=== PATIENT | female | born 1975 | race Caucasian/White ===

== ENCOUNTER 2019-06-24 06:13 | Day surgery (SDC) | payer BC, MEDICAID ==
[~2019-06-24 06:13] MED LIST: Buffered Lidocaine 1% SYRIN* 1 ML/SYRINGE INTRADERM ONE; Lactated Ringers 1000 ML Bag* 1,000 ML IV SCH
[2019-06-24] MEDS ORDERED: Buffered Lidocaine 1% SYRIN* 1 ML/SYRINGE INTRADERM ONE (06:37)
[2019-06-24 07:29] LABS: ABS Basophils 0.1 10^3/ul (0-0.2); ABS Eosinophils 0.2 10^3/ul (0-0.6); ABS Lymphocytes 2.2 10^3/ul (1.0-4.8); ABS Monocytes 0.5 10^3/ul (0-0.8); ABS Neutrophils 3.2 10^3/ul (1.5-7.7); Eosinophil % 2.8 %; Hematocrit 27 % (35-47); Hemoglobin 8.8 g/dL (12.0-16.0); Lymphocyte % 36.2 %; Mean Corpuscular HGB Conc 32 g/dL (31-36); Mean Corpuscular Hemoglobin 25 pg (27-31); Mean Corpuscular Volume 77 fL (80-97); Mean Platelet Volume 8.9 fL (7.4-10.4); Nucleated Red Blood Cells % 0.1; Platelet Count 358 10^3/uL (150-450); Red Blood Count 3.55 10^6 /uL (3.70-4.87); Red Cell Distribution Width 18 % (10-15); White Blood Count 6.1 10^3/uL (3.5-10.8)
[2019-06-24] MEDS ORDERED: Propofol* 10 MG/ML 20 ML BTL ONE (07:36)
[2019-06-24] MEDS ORDERED: HYDROmorphone INJ1* 1 MG/ML SYRINGE ONE ×2 (07:37→08:26)
[2019-06-24] MEDS ORDERED: Ondansetron INJ* 2 MG/ML VIAL ONE (07:56)
[2019-06-24] MEDS ORDERED: Ketorolac INJ* 30 MG/ML 1 ML VIAL ONE (07:56)
[2019-06-24] MEDS ORDERED: Dexamethasone IV* 4 MG/ML 1 ML (4 MG) ONE (07:56)
[2019-06-24] MEDS ORDERED: Ondansetron INJ* 2 MG/ML VIAL IV PRN (08:00)
[2019-06-24] MEDS ORDERED: PROCHLORPERAZINE INJ 5 MG/ML 2 ML VIAL IV PRN (08:00)
[2019-06-24] MEDS ORDERED: Naloxone* 0.4 MG/ML 1 ML VIAL IV PRN ×3 (08:00→08:21)
[2019-06-24] MEDS ORDERED: Silver Nitrate/Potassium Nitr* 1 PAK (1 PAK PER PATIENT) ONE (08:02)
[2019-06-24] MEDS ORDERED: DiMENhydriNATE IV* 50 MG/ML VIAL IV PUSH PRN (08:15)
[2019-06-24] MEDS ORDERED: Acetaminophen IV 1GM/100ML * 100 ML ONE (08:21)
[2019-06-24] MEDS ORDERED: Acetaminophen IV 1GM/100ML * 1,000 MG/100 ML VIAL IVPB ONE (08:21)
[2019-06-24] MEDS: HYDROmorphone INJ1* 1 MG/ML SYRINGE IV PRN ×5 (08:28→08:55)
[2019-06-24] MEDS ORDERED: oxyCODONE TAB* 5 MG TAB ONE (09:46)
[2019-06-24 10:42] VITALS: BP 135/86
--- NOTE | 2019-06-24 18:23 | OP ---
DATE OF OPERATION: 06/24/19 - [facility] DATE OF : 71 SURGEON: Kevin Baker MD ANESTHESIOLOGIST: Dr. Kaufman. ANESTHESIA: General endotracheal. PRE-OP DIAGNOSIS: Menorrhagia. POST-OP DIAGNOSIS: Menorrhagia. OPERATIVE PROCEDURE: Dilation and curettage and endometrial ablation with NovaSure. MATERIALS TO LAB: Endometrial curettings. ESTIMATED BLOOD LOSS: 20 cc. URINE OUTPUT: Minimal. IV FLUIDS: 500 cc lactated Ringer's. INDICATIONS: This patient was a 44-year-old 2, para 2, who presented over the last couple of months with new onset of persistent and heavy uterine bleeding. Pelvic ultrasound was unremarkable and endometrial biopsy returned benign. Bleeding was persistent and heavy despite oral progesterone and tranexamic acid. After discussion, the patient desired to proceed with surgical treatment. She was extensively counseled and consented for a D&C and endometrial ablation. FINDINGS: Uterine cavity that palpated normally with the curette. Small amount of endometrial tissue collected. COMPLICATIONS: None. DESCRIPTION OF PROCEDURE: The risks, benefits, and alternatives were described to the patient and informed consent was obtained. The patient was taken to the operating room with IV running, where a general anesthesia was induced and found to be adequate. The patient was prepped and draped in the normal sterile fashion in the high lithotomy position in Rocco stirrups. A time-out was performed. The bladder was emptied. A bivalve speculum was placed in the vagina and a single- tooth tenaculum was placed on the anterior cervix. The cervix was then gently dilated using Hanks dilators to a maximum size of 30. The uterus sounded to 9 cm and the cavity measured 5 cm. An endometrial curetting was performed and the curettings were collected on Telfa. The NovaSure device was then prepared and placed through the cervix, and into the uterine cavity. Uterine cavity width was measured at 4.2 cm. The power was calculated at 116. After a negative cavity assessment, the endometrial ablation was performed without difficulty and lasted 1 minute 5 seconds. The device was then removed from the uterus. The tenaculum was removed from the cervix and with pressure and silver nitrate. There was good hemostasis at the tenaculum sites. The speculum was then removed and the patient was returned to the supine position. The patient tolerated the procedure well. Sponge, lap, and needle counts were correct x2. [id number]/[facility] #: [id number] MTDD
== END 2019-06-24 10:30 | disposition home or self-care (01) ==
LOC: OR 06:13
PROVIDERS: ATTEND Obstetrics & Gynecology
DX: N92.0 Excessive and frequent menstruation with regular cycle (principal); F17.210 Nicotine dependence, cigarettes, uncomplicated; E03.9 Hypothyroidism, unspecified; F98.8 Other specified behavioral and emotional disorders with onset usually occurring in childhood and adolescence; E78.5 Hyperlipidemia, unspecified; F42.9 Obsessive-compulsive disorder, unspecified
CPT/HCPCS: 36415; 81025; 85025; 88305; A9270-GY; J1100; J1170; J1885; J2405; J2704